=== PATIENT | female | born 1970 | race Caucasian/White ===

== ENCOUNTER 2017-06-03 08:45 | Emergency (ER) | payer OTHER ==
[~2017-06-03] VITALS: Ht 160 cm; Wt 82.0 kg
[2017-06-03 08:54] VITALS: BP 143/90; PULSE 92; RESP 17; TEMP 98.1; O2SAT 98
[2017-06-03 09:03] VITALS: BP 124/87; PULSE 87; RESP 20; TEMP 97.8; O2SAT 98
[2017-06-03] MEDS ORDERED: FURO1TAB60 PO (09:11)
[2017-06-03] MEDS ORDERED: OXYC-396 PO (09:11)
[2017-06-03] MEDS ORDERED: OXYC15TA PO (09:11)
--- NOTE | 2017-06-03 09:27 | PD ---
HPI Chief Complaint: Abdominal Pain Time Seen by Provider: 09:26 Travel History International Travel<30 days: No Contact w/Intl Traveler<30days: No Traveled to known affect area: No History of Present Illness HPI 46-year-old female came to the emergency room with history of abdominal pain that has been going on for past 1 week. Patient says she has history of ovarian cancer and has been in remission since October of this year. She had surgery done with her ovaries were taken out but she is confused if both ovaries were taken out or just one. All this was done in [place]. Patient is here on vacation and will go back home in 3 weeks. No history of vomiting or diarrhea. No history of constipation. The pain waxes and wanes. Vital signs are stable otherwise. Patient is on oxycodone multiple doses daily for chronic pain control. She says she has been taking them and did not run out of those medications. She appeared to be anxious and in discomfort. PFSH Past Medical History Narrative Medical List of her past medical, surgical, social and family history is reviewed from the nursing note. 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 Reported Meds & Prescriptions Reported Meds & Active Scripts Active Reported Oxycodone (Oxycodone HCl) 20 Mg Tab 20 Mg PO BID PRN Oxycodone (Oxycodone HCl) 15 Mg Tab 15 Mg PO QID PRN Lasix (Furosemide) 40 Mg Tab 40 Mg PO DAILY Narrative Medication List of her home medications reviewed from the nursing note. Review of Systems Except as stated in HPI: all other systems reviewed are Neg Gastrointestinal: Positive: Abdominal Pain Physical Exam Narrative GENERAL: Awake, alert, anxious, moderate distress SKIN: Focused skin assessment warm/dry. HEAD: Atraumatic. Normocephalic. EYES: Pupils equal and round. No scleral icterus. No injection or drainage. ENT: No nasal bleeding or discharge. Mucous membranes pink and moist. NECK: Trachea midline. No JVD. CARDIOVASCULAR: Regular rate and rhythm. No murmur appreciated. RESPIRATORY: No accessory muscle use. Clear to auscultation. Breath sounds equal bilaterally. GASTROINTESTINAL: Abdomen soft, non-tender, nondistended. Hepatic and splenic margins not palpable. MUSCULOSKELETAL: No obvious deformities. No clubbing. No cyanosis. No edema. NEUROLOGICAL: Awake and alert. No obvious cranial nerve deficits. Motor grossly within normal limits. Normal speech. PSYCHIATRIC: Appropriate mood and affect; insight and judgment normal. Data Data Last Documented VS Orders Orders Complete Blood Count With Diff (06/03/17 09:30) Comprehensive Metabolic Panel (06/03/17 09:30) Lipase (06/03/17 09:30) Ct Abd/Pel W/O Iv Contrast (06/03/17 09:30) Iv Access Insert/Monitor (06/03/17 09:30) Ecg Monitoring (06/03/17 09:30) Oximetry (06/03/17 09:30) Ondansetron Inj (Zofran Inj) (06/03/17 09:30) Sodium Chlor 0.9% 1000 Ml Inj (Ns 1000 M (06/03/17 09:30) Sodium Chloride 0.9% Flush (Ns Flush) (06/03/17 09:30) Ketorolac Inj (Toradol Inj) (06/03/17 09:30) Urinalysis - C+S If Indicated (06/03/17 09:30) Ed Discharge Order (06/03/17 11:32) Labs Laboratory Tests Test 06/03/17 09:40 06/03/17 10:40 White Blood Count 5.1 TH/MM3 Red Blood Count 4.58 MIL/MM3 Hemoglobin 13.3 GM/DL Hematocrit 39.1 % Mean Corpuscular Volume 85.3 FL Mean Corpuscular Hemoglobin 29.0 PG Mean Corpuscular Hemoglobin Concent 34.0 % Red Cell Distribution Width 13.7 % Platelet Count 222 TH/MM3 Mean Platelet Volume 7.5 FL Neutrophils (%) (Auto) 66.6 % Lymphocytes (%) (Auto) 23.1 % Monocytes (%) (Auto) 7.8 % Eosinophils (%) (Auto) 2.0 % Basophils (%) (Auto) 0.5 % Neutrophils # (Auto) 3.4 TH/MM3 Lymphocytes # (Auto) 1.2 TH/MM3 Monocytes # (Auto) 0.4 TH/MM3 Eosinophils # (Auto) 0.1 TH/MM3 Basophils # (Auto) 0.0 TH/MM3 CBC Comment DIFF FINAL Differential Comment Blood Urea Nitrogen 6 MG/DL Creatinine 1.07 MG/DL Random Glucose 112 MG/DL Total Protein 7.1 GM/DL Albumin 3.7 GM/DL Calcium Level 9.2 MG/DL Alkaline Phosphatase 78 U/L Aspartate Amino Transf (AST/SGOT) 8 U/L Alanine Aminotransferase (ALT/SGPT) 16 U/L Total Bilirubin 0.3 MG/DL Sodium Level 139 MEQ/L Potassium Level 3.7 MEQ/L Chloride Level 107 MEQ/L Carbon Dioxide Level 22.8 MEQ/L Anion Gap 9 MEQ/L Estimat Glomerular Filtration Rate 55 ML/MIN Lipase 136 U/L Urine Color LIGHT-YELLOW Urine Turbidity HAZY Urine pH 7.5 Urine Specific [place] 1.012 Urine Protein NEG mg/dL Urine Glucose (UA) NEG mg/dL Urine Ketones NEG mg/dL Urine Occult Blood NEG Urine Nitrite NEG Urine Bilirubin NEG Urine Urobilinogen LESS THAN 2.0 MG/DL Urine Leukocyte Esterase TRACE Urine RBC 1 /hpf Urine WBC 2 /hpf Urine Squamous Epithelial Cells 6 /hpf Urine Bacteria RARE /hpf Microscopic Urinalysis Comment CULT NOT INDICATED MDM Medical Decision Making Medical Screen Exam Complete: Yes Emergency Medical Condition: Yes Medical Record Reviewed: Yes Differential Diagnosis Intra-abdominal tumor, acute on chronic abdominal pain Narrative Course 11:29 AM blood test results of back and within acceptable limits. CT scan is read by the radiologist as unremarkable. At this point I think patient is just going over acute on chronic exacerbation of the pain. I have medicated her for her pain. I'll discharge her home. Procedures EKG Prior to Arrival: No Diagnosis Primary Impression: acute on chronic abdominal pain Additional Impression: Chronic abdominal pain Referrals: Primary Care Physician Additional Instructions: Please follow-up with your primary care and your oncologist/surgeon when you return home. Return to the ER if the condition worsens or any other new concerns. Tenia are pain medication at home as prescribed. Med/Other Pt SpecificInfo: No Change to Meds Disposition: 01 DISCHARGE HOME Condition: Stable Milton Paniagua MD Jun 03, 2017 09:27
[2017-06-03] MEDS ORDERED: ONDANSETRON HCL 4 MG/2 ML VIAL IVP ONE (09:30)
[2017-06-03] MEDS ORDERED: KETOROLAC TROMETHAMINE 30 MG/ML (IVP) VIAL IVP ONE (09:30)
[2017-06-03] MEDS ORDERED: SODIUM CHLORIDE 0.9% FLUSH 10 ML FLUSH IV FLUSH PRN (09:30)
[2017-06-03] MEDS ORDERED: SODIUM CHLOR 0.9% 1000 ML INJ 1,000 ML IV SCH (09:30)
[2017-06-03 09:42] VITALS: O2SAT 97
[2017-06-03 10:24] LABS: AUTOMATED NEUTROPHIL # 3.4 TH/MM3 (1.8-7.7); BASOPHIL % 0.5 % (0.0-2.0); EOSINOPHIL # 0.1 TH/MM3 (0-0.4); HEMATOCRIT 39.1 % (35.0-46.0); HEMO FLAGS DIFF FINAL; LYMPH % 23.1 % (9.0-44.0); LYMPHOCYTE # 1.2 TH/MM3 (1.0-4.8); MEAN CELL VOLUME 85.3 FL (80.0-100.0); MONO % 7.8 % (0.0-8.0); NEUT % 66.6 % (16.0-70.0); PLATELET COUNT 222 TH/MM3 (150-450); RED BLOOD COUNT 4.58 MIL/MM3 (4.00-5.30); RED CELL DISTRIBUTION WIDTH 13.7 % (11.6-17.2); WHITE BLOOD COUNT 5.1 TH/MM3 (4.0-11.0)
[2017-06-03 10:35] LABS: ANION GAP 9 MEQ/L (5-15); AST (GOT) 8 U/L (15-37); BICARBONATE 22.8 MEQ/L (21.0-32.0); BLOOD UREA NITROGEN 6 MG/DL (7-18); CHLORIDE 107 MEQ/L (98-107); GLOMERULAR FILTRATION RATE 55 ML/MIN (>89); POTASSIUM 3.7 MEQ/L (3.5-5.1); SODIUM (NA) 139 MEQ/L (136-145)
[2017-06-03 10:37] LABS: ALT (GPT) 16 U/L (10-53)
--- NOTE | 2017-06-03 10:38 | RADRPT ---
EXAM DATE/TIME: 06/03/2017 10:05 [facility] COMPARISON: No previous studies available for comparison. INDICATIONS : Right upper quadrant pain with nausea and vomiting. ORAL CONTRAST: No oral contrast ingested. RADIATION DOSE: 9.96 CTDIvol (mGy) MEDICAL HISTORY : Ovarain cancer with lung mets SURGICAL HISTORY : Hysterectomy. ENCOUNTER: Initial ACUITY: 4 - 6 days PAIN SCALE: 5/10 LOCATION: Right upper quadrant TECHNIQUE: Volumetric scanning of the abdomen and pelvis was performed. Using automated exposure control and ad justment of the mA and/or kV according to patient size, radiation dose was kept as low as reasonably achievable to obtain optimal diagnostic quality images. DICOM format image data is available electro nically for review and comparison. The lack of IV contrast limits the diagnosis for certain organ pa thology. FINDINGS: LOWER LUNGS: The visualized lower lungs are clear. LIVER: Homogeneous density without lesion. There is no dilation of the biliary tree. No calcified gallston es. SPLEEN: Normal size without lesion. PANCREAS: Within normal limits. KIDNEYS: Normal in size and shape. There is no mass, stone, or hydronephrosis. Bilateral extrarenal pelves. ADRENAL GLANDS: Within normal limits. VASCULAR: There is no aortic aneurysm. BOWEL/MESENTERY: The stomach, small bowel, and colon demonstrate no acute abnormality. There is no free intraperitone al air or fluid. The appendix is unremarkable. ABDOMINAL WALL: Within normal limits. RETROPERITONEUM: There is no lymphadenopathy. BLADDER: No wall thickening or mass. No bladder stones. REPRODUCTIVE: Within normal limits. INGUINAL: There is no lymphadenopathy or hernia. MUSCULOSKELETAL: Within normal limits for patient age. CONCLUSION: Unremarkable CT scan of the abdomen and pelvis with patient's age. Nael Hinson MD on June 03, 2017 at 10:34 Board Certified Radiologist. This report was verified electronically.
[2017-06-03 10:39] LABS: ALKALINE PHOSPHATASE 78 U/L (45-117); TOTAL BILIRUBIN ADULT 0.3 MG/DL (0.2-1.0)
[2017-06-03 10:58] LABS: BACTERIA, URINE RARE /hpf; BLOOD, URINE NEG (NEG); COMMENT (UR) CULT NOT INDICATED; CULTURE IF INDICATED CULT NOT INDICATED; GLUCOSE,URINE NEG (NEG); KETONE, URINE NEG (NEG); NITRITE,URINE NEG (NEG); PH, URINE 7.5 (5.0-8.5); SQUAMOUS EPITHELIAL CELL URINE 6 /hpf (0-5); URINE COLOR LIGHT-YELLOW (YELLW/STRAW)
== END 2017-06-03 11:45 | disposition home or self-care (01) ==
LOC: NEPE 08:45
DX: R10.9 Unspecified abdominal pain (principal); G89.29 Other chronic pain; Z85.43 Personal history of malignant neoplasm of ovary
CPT/HCPCS: 74176; 80053; 81001; 83690; 85025; 96361; 96374; 96375; 99285; J1885; J2405; J7030

== ENCOUNTER 2018-05-22 03:02 | Observation (INO) ==
[2018-05-22] MEDS ORDERED: Morphine Inj 4 MG/ML Vial IV.PUSH ONE (03:24)
--- NOTE | 2018-05-22 03:28 | ED ---
HPI General Chief complaint: Syncope Stated complaint: Medical Time Seen by Provider: 05/22/18 03:09 History of Present Illness HPI narrative: 47-year-old female with history of metastatic ovarian CA status post chemotherapy and total abdominal hysterectomy, was in remission with recent recurrence, on oral chemotherapy, recently moved here from [place] 6 weeks ago and scheduled to follow with an oncologist here, presents for evaluation of a syncopal episode. The patient reports that she got out of bed, walked to the kitchen, opened the refrigerator, then had a syncopal episode. She felt lightheaded and dizzy prior to the episode. She denies sustaining any injuries. She states that for the last couple of weeks she has not been feeling well. She has chronic abdominal pains and has had ascites in the past and states that her abdominal pain seems to be worse over the last couple of days. She has diffuse pain, but mainly has suprapubic pain that is described as twisting, nonradiating, constant, severe, worse with movements. She occasionally has nausea and vomiting especially after taking her hormone chemotherapy. No diarrhea. No fevers. No cough. No history of DVT or PE. No chest pain or dyspnea. No melena or hematochezia. Related Data Home Medications Medication Instructions Recorded Confirmed docusate sodium [Colace] 100 mg PO DAILY 05/22/18 05/22/18 furosemide [Lasix] 20 mg PO DAILY 05/22/18 05/22/18 ondansetron [Zofran ODT] 4 mg PO BID PRN 05/22/18 05/22/18 oxycodone 15 mg PO Q4-6H PRN 05/22/18 05/22/18 oxycodone [OxyContin] 20 mg PO Q12H 05/22/18 05/22/18 promethazine [Phenergan] 05/22/18 rucaparib [Rubraca] 300 mg PO BID 05/22/18 05/22/18 Allergies Allergy/AdvReac Type Severity Reaction Status Date / Time penicillin G Allergy Severe rash Verified 06/03/17 08:54 Review of Systems ROS: all other systems reviewed are negative COUNT INCLUDES THE [facility] Medical History Medical History Hx of hysterectomy (Acute) Ovarian cancer (Acute) Stage 4 lung cancer (Acute) Surgical History Surgical History Hx of right knee surgery (Acute) Hx of tubal ligation (Acute) Social History Social History Substance History: Active Abuse Second Hand Smoke Exposure: No Smoking Status: Never smoker How Often Do You Have a Drink Containing Alcohol: Never Recent Travel in [facility] within the Last 8 Weeks: No Recent Out of Country Travel within the Last 8 Weeks: No Exam Narrative Exam Narrative: GENERAL: Well-developed, well-nourished, tearful, awake, alert, no apparent distress. SKIN: Focused skin assessment warm/dry. No lacerations or abrasions. HEAD: Atraumatic. Normocephalic. EYES: Pupils equal and round. No scleral icterus. No injection or drainage. ENT: Mucous membranes pink and moist. NECK: Trachea midline. No JVD. CARDIOVASCULAR: Regular rate and rhythm. RESPIRATORY: No accessory muscle use. Clear to auscultation. Breath sounds equal bilaterally. GASTROINTESTINAL: Abdomen soft, nondistended. Moderate diffuse tenderness with significant suprapubic tenderness. No peritoneal signs. MUSCULOSKELETAL: No obvious deformities. No clubbing. No cyanosis. No edema. NEUROLOGICAL: Awake and alert. No obvious cranial nerve deficits. Motor grossly within normal limits. Normal speech. PSYCHIATRIC: Appropriate mood and affect; insight and judgment normal. Course Initial Documented Vital Signs Temperature 98.2 F 05/22/18 03:05 Pulse Rate 80 05/22/18 03:05 Respiratory Rate 20 05/22/18 03:05 Blood Pressure 149/94 H 05/22/18 03:05 Pulse Oximetry 98 05/22/18 03:05 Last Documented Vital Signs Temperature 98.2 F 05/22/18 05:31 Pulse Rate 71 05/22/18 05:31 Respiratory Rate 18 05/22/18 05:31 Blood Pressure 125/70 05/22/18 05:31 Pulse Oximetry 98 05/22/18 05:31 Medical Decision Making MDM Narrative Medical decision making narrative: Vital signs reviewed. CBC is essentially unremarkable. CMP is essentially unremarkable. Cardiac enzymes are negative. UA is not suggestive of UTI. CT head: No evidence of acute intracranial pathology. No masses are identified. CT abdomen pelvis: No evidence of acute abdominal or pelvic process. No masses are identified. CT pulmonary angiogram: No evidence of pulmonary embolism. Coronary calcifications present. The patient was made aware of all findings. She was provided 4 mg of IV morphine shortly after arrival and on reassessment she states that her pain has slightly improved, she still complaining of significant lower abdominal pain and is very tearful. She has never had a syncopal episode in the past. Her EKG shows normal sinus rhythm with a rate of 74, normal axis, normal intervals, no acute ischemic abnormalities. She did have some coronary calcification seen on her CT pulmonary angiogram. She will be given a second dose of pain medicine for her abdominal pain. Given syncope with coronary calcifications as well as ongoing abdominal pain, the patient will be admitted to observation for further treatment and evaluation. Case discussed with hospitalist Dr. Plasencia who will admit the patient to her service. Medical Screen Exam Complete: Yes Emergency Medical Condition: Yes Differential Diagnosis Differential Diagnosis: Syncope, dysrhythmia, anemia, metabolic abnormality, PE , acute intra-abdominal pathology, AAA Lab Data Result diagrams: 05/22/18 03:30 05/22/18 03:30 Lab Results 05/22/18 05/22/18 05/22/18 Range/Units 03:30 03:30 03:30 WBC 6.3 (4.0-11.0) th/mm3 RBC 4.25 (4.00-5.30) mil/mm3 Hgb 12.8 (11.6-15.3) gm/dL Hct 37.1 (35.0-46.0) % MCV 87.4 (80.0-100.0) fL MCH 30.2 (27.0-34.0) pg MCHC 34.5 (32.0-36.0) % RDW 15.0 (11.6-17.2) % Plt Count 219 (150-450) th/mm3 MPV 7.5 (7.0-11.0) fL Neut % (Auto) 53.2 (16.0-70.0) % Lymph % (Auto) 35.8 (9.0-44.0) % [place] % (Auto) 9.0 H (0.0-8.0) % Eos % (Auto) 1.6 (0.0-4.0) % Baso % (Auto) 0.4 (0.0-2.0) % Neut # (Auto) 3.4 (1.8-7.7) th/mm3 Lymph # (Auto) 2.3 (1.0-4.8) th/mm3 [place] # (Auto) 0.6 (0.0-0.9) th/mm3 Eos # (Auto) 0.1 (0.0-0.4) th/mm3 Baso # (Auto) 0.0 (0.0-0.2) th/mm3 WBC Differential . Differential Comment Auto diff final PT 11.1 (9.8-11.6) sec INR 1.1 Ratio APTT 25.5 (24.3-30.1) sec Sodium 141 (136-145) meq/L Potassium 3.7 (3.5-5.1) meq/L Chloride 102 (98-107) meq/L Carbon Dioxide 27.4 (21.0-32.0) meq/L Anion Gap 12 (5-15) meq/L BUN 11 (7-18) mg/dL Creatinine 1.02 H (0.50-1.00) mg/dL Estimated GFR 58 L (>89) mL/min Random Glucose 104 (74-106) mg/dL Calcium 8.6 (8.5-10.1) mg/dL Total Bilirubin 0.4 (0.2-1.0) mg/dL AST 9 L (15-37) U/L ALT 13 (10-53) U/L Alkaline Phosphatase 56 (45-117) U/L Troponin I Less than 0.02 L (0.02-0.05) ng/mL Total Protein 7.2 (6.4-8.2) g/dL Albumin 3.8 (3.4-5.0) g/dL Urine Color (Yellw/Straw) Urine Clarity (Clear) Urine pH (5.0-8.5) Ur Specific [place] (1.002-1.035) Urine Protein (Neg-Trace) mg/dL Urine Glucose (UA) (Negative) mg/dL Urine Ketones (Negative) mg/dL Urine Occult Blood (Negative) Urine Nitrate (Negative) Urine Bilirubin (Negative) Urine Urobilinogen (Less than 2) mg/dL Ur Leukocyte Esterase (Negative) Urine WBC (0-5) /hpf Ur Squamous Epith Cells (0-5) /hpf Urine Mucus (Occasional) /lpf Micro UA Comment Ur Microscopic Review Urine Culture Comments 05/22/18 Range/Units 05:30 WBC (4.0-11.0) th/mm3 RBC (4.00-5.30) mil/mm3 Hgb (11.6-15.3) gm/dL Hct (35.0-46.0) % MCV (80.0-100.0) fL MCH (27.0-34.0) pg MCHC (32.0-36.0) % RDW (11.6-17.2) % Plt Count (150-450) th/mm3 MPV (7.0-11.0) fL Neut % (Auto) (16.0-70.0) % Lymph % (Auto) (9.0-44.0) % [place] % (Auto) (0.0-8.0) % Eos % (Auto) (0.0-4.0) % Baso % (Auto) (0.0-2.0) % Neut # (Auto) (1.8-7.7) th/mm3 Lymph # (Auto) (1.0-4.8) th/mm3 [place] # (Auto) (0.0-0.9) th/mm3 Eos # (Auto) (0.0-0.4) th/mm3 Baso # (Auto) (0.0-0.2) th/mm3 WBC Differential Differential Comment PT (9.8-11.6) sec INR Ratio APTT (24.3-30.1) sec Sodium (136-145) meq/L Potassium (3.5-5.1) meq/L Chloride (98-107) meq/L Carbon Dioxide (21.0-32.0) meq/L Anion Gap (5-15) meq/L BUN (7-18) mg/dL Creatinine (0.50-1.00) mg/dL Estimated GFR (>89) mL/min Random Glucose (74-106) mg/dL Calcium (8.5-10.1) mg/dL Total Bilirubin (0.2-1.0) mg/dL AST (15-37) U/L ALT (10-53) U/L Alkaline Phosphatase (45-117) U/L Troponin I (0.02-0.05) ng/mL Total Protein (6.4-8.2) g/dL Albumin (3.4-5.0) g/dL Urine Color Yellow (Yellw/Straw) Urine Clarity Clear (Clear) Urine pH 6.0 (5.0-8.5) Ur Specific [place] 1.025 (1.002-1.035) Urine Protein Negative (Neg-Trace) mg/dL Urine Glucose (UA) Negative (Negative) mg/dL Urine Ketones Negative (Negative) mg/dL Urine Occult Blood Negative (Negative) Urine Nitrate Negative (Negative) Urine Bilirubin Negative (Negative) Urine Urobilinogen Less than 2 (Less than 2) mg/dL Ur Leukocyte Esterase Negative (Negative) Urine WBC 1 (0-5) /hpf Ur Squamous Epith Cells <1 (0-5) /hpf Urine Mucus Few H (Occasional) /lpf Micro UA Comment Culture not ind Ur Microscopic Review Not Reportable Urine Culture Comments Culture not ind Imaging Data Radiologist's impression: Abdomen/Pelvis CT 05/22/18 03:21 CONCLUSION: No evidence of acute abdominal or pelvic process. No masses are identified. Chest CTA 05/22/18 03:21 CONCLUSION: No evidence of pulmonary embolism. Head CT 05/22/18 03:21 CONCLUSION: No evidence of acute intracranial pathology. No masses are identified. . ECG Data Attestation: I personally reviewed and interpreted this ECG as follows: Discharge Plan Discharge Disposition Patient Disposition: 30 Still Patient Discharge Condition Condition: Stable Discharge Details Diagnosis: Syncope, Intractable abdominal pain Physicians Team ED Provider: Dereck Arrington Primary Care Provider: Primary Care Shari Ferris Rxs /Orders / Referrals /Forms Prescriptions: No Action oxycodone 15 mg Tablet 15 mg PO Q4-6H PRN (Reason: Pain) RF: 0 promethazine [Phenergan] 12.5 mg Suppository RF: 0 docusate sodium [Colace] 100 mg Capsule 100 mg PO DAILY RF: 0 furosemide [Lasix] 20 mg Tablet 20 mg PO DAILY RF: 0 ondansetron [Zofran ODT] 4 mg Tablet,Disintegrating 4 mg PO BID PRN (Reason: Nausea) RF: 0 oxycodone [OxyContin] 20 mg Tablet,Oral Only,Ext.Rel.12 Hr 20 mg PO Q12H RF: 0 rucaparib [Rubraca] 300 mg Tablet 300 mg PO BID RF: 0 Discharge Interventions Interventions: Vital Signs Last Done: 05/22/18 05:31 Status ED Status: With Doctor
[2018-05-22 04:03] LABS: Baso % (Auto) 0.4 % (0.0-2.0); Eos # (Auto) 0.1 th/mm3 (0.0-0.4); Eos % (Auto) 1.6 % (0.0-4.0); Hematocrit 37.1 % (35.0-46.0); Hemoglobin 12.8 gm/dL (11.6-15.3); Lymph # (Auto) 2.3 th/mm3 (1.0-4.8); Lymph % (Auto) 35.8 % (9.0-44.0); Mean Corpuscular HGB Conc 34.5 % (32.0-36.0); Mean Corpuscular Hemoglobin 30.2 pg (27.0-34.0); Mean Corpuscular Volume 87.4 fL (80.0-100.0); Mean Platelet Volume 7.5 fL (7.0-11.0); Mono # (Auto) 0.6 th/mm3 (0.0-0.9); Neut # (Auto) 3.4 th/mm3 (1.8-7.7); Neut % (Auto) 53.2 % (16.0-70.0); Platelet Count 219 th/mm3 (150-450); Red Blood Count 4.25 mil/mm3 (4.00-5.30); White Blood Count 6.3 th/mm3 (4.0-11.0)
[2018-05-22 04:08] LABS: Activated Partial Thrombo Time 25.5 sec (24.3-30.1); INR 1.1 Ratio; Prothrombin Time 11.1 sec (9.8-11.6)
[2018-05-22 04:21] LABS: Alanine Aminotransferase 13 U/L (10-53); Albumin 3.8 g/dL (3.4-5.0); Anion Gap 12 meq/L (5-15); Aspartate Aminotransferase 9 U/L (15-37); Blood Urea Nitrogen 11 mg/dL (7-18); Calcium 8.6 mg/dL (8.5-10.1); Carbon Dioxide 27.4 meq/L (21.0-32.0); Chloride 102 meq/L (98-107); Glomerular Filtration Rate 58 mL/min (>89); Glucose,Random 104 mg/dL (74-106); Potassium 3.7 meq/L (3.5-5.1); Sodium 141 meq/L (136-145)
[2018-05-22 04:24] LABS: Alkaline Phosphatase 56 U/L (45-117); Total Protein 7.2 g/dL (6.4-8.2)
[2018-05-22 05:32] VITALS: O2SAT 98
--- NOTE | 2018-05-22 05:50 | CT ---
EXAM DATE: 05/22/2018 3:47 AM EDT AGE/SEX: 47 years / Female INDICATIONS: Syncope. Stage 4 ovarian cancer. CLINICAL DATA: This is the patient's initial encounter. Patient reports that signs and symptoms have been present for 1 day and indicates a pain score of 4/10. MEDICAL/SURGICAL HISTORY: Carcinoma, ovarian. Metastatic disease. Hysterectomy. RADIATION DOSE: 56.35 CTDI (mGy) COMPARISON: . TECHNIQUE: CT of the head without contrast. Using automated exposure control and adjustment of the mA and/or kV according to patient size, radiation dose was kept as low as reasonably achievable to ob tain optimal diagnostic quality images. DICOM format image data is available electronically for revi ew and comparison. FINDINGS: Noncontrast axial head CT demonstrates the ventricles to be normal in size and configuration with a n ormal sulcal pattern. No acute intracranial hemorrhage, acute cortical infarction, mass or midline sh ift is seen. Posterior fossa structures are unremarkable. Bone windows are unremarkable. CONCLUSION: No evidence of acute intracranial pathology. No masses are identified. . Electronically signed by: Thomas Nino MD 05/22/2018 5:49 AM EDT
--- NOTE | 2018-05-22 05:53 | CT ---
EXAM DATE: 05/22/2018 3:47 AM EDT AGE/SEX: 47 years / Female INDICATIONS: Shortness of breath, syncope. CLINICAL DATA: This is the patient's initial encounter. Patient reports that signs and symptoms have been present for 1 day and indicates a pain score of 0/10. MEDICAL/SURGICAL HISTORY: Carcinoma, ovarian. Metastatic disease. Chemotherapy. Ascites. Hysterec tiffanie. RADIATION DOSE: 9.84 CTDI (mGy) COMPARISON: No prior exams available for comparison. TECHNIQUE: Volumetric scanning was performed using a multi-row detector CT scanner during bolus infu valeria of 100 ml Omnipaque 350 (iohexol) nonionic water-soluble contrast as a cumulative dose for mult iple exams. The data was post processed with a variety of visualization algorithms including full vol ume maximum intensity projection and sliding thin slab reformation. Using automated exposure control and adjustment of the mA and/or kV according to patient size, radiation dose was kept as low as reas onably achievable to obtain optimal diagnostic quality images. DICOM format image data is available electronically for review and comparison. FINDINGS: Examination of the pulmonary vasculature demonstrates good filling of the main, lobar and segmental b ranches. There are no filling defects to suggest pulmonary embolism. Multiplanar reconstructions are also unremarkable. There is subsegmental atelectasis in the both bases. Examination of the mediastinum demonstrates no a bnormally enlarged lymph nodes by CT criteria. No axillary or hilar abnormalities are identified. Cor onary artery calcifications are present. CONCLUSION: No evidence of pulmonary embolism. Electronically signed by: Thomas Nino MD 05/22/2018 5:51 AM EDT
--- NOTE | 2018-05-22 05:55 | CT ---
EXAM DATE: 05/22/2018 3:48 AM EDT AGE/SEX: 47 years / Female INDICATIONS: Abdominal pain. CLINICAL DATA: This is the patient's initial encounter. Patient reports that signs and symptoms have been present for 1 day and indicates a pain score of 8/10. MEDICAL/SURGICAL HISTORY: Carcinoma, ovarian. Metastatic disease. Chemotherapy. Ascites. Hys terectomy. ORAL CONTRAST: No oral contrast ingested. RADIATION DOSE: 16.59 CTDI (mGy) COMPARISON: No prior exams available for comparison. TECHNIQUE: Multiple contiguous axial images were obtained through the abdomen and pelvis following b olus infusion of 100 ml Omnipaque 350 (iohexol) nonionic water-soluble contrast as a cumulative dos e for multiple exams. No oral contrast ingested. Using automated exposure control and adjustment of the mA and/or kV according to patient size, radiation dose was kept as low as reasonably achievable t o obtain optimal diagnostic quality images. DICOM format image data is available electronically for review and comparison. FINDINGS: There is subsegmental atelectasis in the both bases. The liver and spleen are free of focal defects. The gallbladder and pancreas demonstrate no abnormality. The adrenal glands are normal. The kidneys d emonstrate no evidence of solid renal mass or hydronephrosis. No free fluid or abdominal masses are i dentified. No para-aortic adenopathy is seen. The appendix is identified and appears normal. Examination of the pelvis demonstrates no evidence of free fluid or pelvic mass. No abnormally enlarg ed inguinal or retroperitoneal lymph nodes are present. The bladder is unremarkable. CONCLUSION: No evidence of acute abdominal or pelvic process. No masses are identified. Electronically signed by: Thomas Nino MD 05/22/2018 5:54 AM EDT
[2018-05-22 05:57] LABS: Bilirubin,Urine Negative (Negative); Clarity,Urine Clear (Clear); Color,Urine Yellow (Yellw/Straw); Glucose,Urine (UA) Negative (Negative); Leukocyte Esterase,Urine Negative (Negative); Mucus,Urine Few /lpf (Occasional); Nitrite,Urine Negative (Negative); Specific Gravity,Urine 1.025 (1.002-1.035); Squamous Epithelial Cell,Urine <1 /hpf (0-5)
[2018-05-22] MEDS ORDERED: HYDROmorphone PF Inj 2 MG/ML Vial IV.PUSH ONE (06:04)
[2018-05-22] MEDS ORDERED: Sod Chloride 0.9% Inj 1,000 ML IV.CONT SCH (06:30)
[2018-05-22] MEDS ORDERED: [UNRECOGNIZED DRUG - OTHER] PO SCH (09:15)
[2018-05-22 09:20] LABS: Calcium 8.9 mg/dL (8.5-10.1); Carbon Dioxide 27.7 meq/L (21.0-32.0); Potassium 3.9 meq/L (3.5-5.1)
--- NOTE | 2018-05-22 09:20 | P.HPIM ---
History of Present Illness Primary Care Physician: No Primary Care Physician Chief Complaint: " I passed out." History of Present Illness: patient is a 47 y/o female with history of metastatic ovarian cancer- s/p total hysterectomy and currently on chemotherapy, presented to ER after she passed out at home earlier. she says that when she got out of the bed to go to kitchen she fainted. she denies any prodromal symptoms before the fall-including chest pain, sob, dizziness,nausea. she regained her consciousness in a couple of minutes. she's complaining of mild lower abdominal pain- otherwise no other complaints today. Review of Systems All other systems reviewed negative except as stated in HPI PMFSH - History History Provided By: Patient - Medical History Medical History: Medical History (Last Reviewed 05/22/18 @ 09:14 by Kyree Parks MD) Hx of hysterectomy Ovarian cancer Stage 4 lung cancer - Surgical History Surgical History: Surgical History (Last Reviewed 05/22/18 @ 09:14 by Kyree Parks MD) Hx of right knee surgery Hx of tubal ligation - Family History Family History: Family History (Last Reviewed 05/22/18 @ 09:14 by Kyree Parks MD) Other No pertinent family history - Tobacco History Second Hand Smoke Exposure: No Tobacco Use In Past 30 Days: No Smoking Status: Never smoker - Alcohol History How Often Do You Have a Drink Containing Alcohol: Never - Substance Use History Substance History: Active Abuse - Substance Use Type Marijuana Status: Active Route Used: Inhalation Reason for Use: Feels Good - Travel History Recent Travel in the [place] Within the Last 8 Weeks: No Recent Travel Out of the Country Within the Last 8 Weeks: No - Immunization History Tetanus Immunization: <5 Years Medications and Allergies Active Medications: Active Medications Sodium Chloride (Ns Inj) 1,000 mls @ 100 mls/hr IV.CONT .Q10H KASSI Last Admin: 05/22/18 07:43 Dose: 100 mls/hr Allergies Allergy/AdvReac Type Severity Reaction Status Date / Time penicillin G Allergy Severe rash Verified 06/03/17 08:54 Home Medications Medication Instructions Recorded Confirmed Type docusate sodium [Colace] 100 mg PO DAILY 05/22/18 05/22/18 History furosemide [Lasix] 20 mg PO DAILY 05/22/18 05/22/18 History ondansetron [Zofran ODT] 4 mg PO BID PRN 05/22/18 05/22/18 History oxycodone 15 mg PO Q4-6H PRN 05/22/18 05/22/18 History oxycodone [OxyContin] 20 mg PO Q12H 05/22/18 05/22/18 History promethazine [Phenergan] 05/22/18 History rucaparib [Rubraca] 300 mg PO BID 05/22/18 05/22/18 History Exam Vital signs: Vital Signs 05/22/18 03:05 05/22/18 03:35 05/22/18 05:02 Temperature 98.2 F 98.1 F Pulse Rate 80 85 Respiratory Rate 20 20 16 Blood Pressure 149/94 H 138/95 H Pulse Oximetry 98 99 05/22/18 05:31 05/22/18 08:00 Temperature 98.2 F Pulse Rate 71 76 Respiratory Rate 18 16 Blood Pressure 125/70 122/78 Pulse Oximetry 98 Intake & Output 05/21/18 05/22/18 05/22/18 18:59 06:59 18:59 Weight 72.575 kg - Constitutional no acute distress - Routine HEENT Exam Eye: Present: PERRL - Routine Neck Exam Present: supple - Routine Respiratory Exam Present: CTA bilaterally - Routine Cardiovascular Exam Present: RRR - Routine Abdominal Exam Present: soft - Routine Extremities Exam Comments: no pedal edema. - Routine Neurological Exam Present: alert, oriented X3 Results - Labs CBC & Chem 7: 05/22/18 03:30 05/22/18 03:30 Labs: Short CBC 05/22/18 Range/Units 03:30 WBC 6.3 (4.0-11.0) th/mm3 Hgb 12.8 (11.6-15.3) gm/dL Hct 37.1 (35.0-46.0) % Plt Count 219 (150-450) th/mm3 BMP 05/22/18 03:30 Sodium 141 Potassium 3.7 Chloride 102 Carbon Dioxide 27.4 BUN 11 Creatinine 1.02 H Calcium 8.6 Cardiac Enzymes 05/22/18 Range/Units 03:30 Troponin I Less than 0.02 L (0.02-0.05) ng/mL Liver Function 05/22/18 Range/Units 03:30 Total Bilirubin 0.4 (0.2-1.0) mg/dL AST 9 L (15-37) U/L ALT 13 (10-53) U/L Alkaline Phosphatase 56 (45-117) U/L Albumin 3.8 (3.4-5.0) g/dL Urine 05/22/18 Range/Units 05:30 Urine Color Yellow (Yellw/Straw) Urine Clarity Clear (Clear) Urine pH 6.0 (5.0-8.5) Ur Specific [place] 1.025 (1.002-1.035) Urine Protein Negative (Neg-Trace) mg/dL Urine Glucose (UA) Negative (Negative) mg/dL - Imaging Impressions Abdomen/Pelvis CT 05/22/18 03:21 CONCLUSION: No evidence of acute abdominal or pelvic process. No masses are identified. Chest CTA 05/22/18 03:21 CONCLUSION: No evidence of pulmonary embolism. Head CT 05/22/18 03:21 CONCLUSION: No evidence of acute intracranial pathology. No masses are identified. . Caprini VTE Risk Assessment Caprini VTE Risk Assessment: Moderate/High Risk (score >= 2) Caprini Risk Assessment Model: Point Value = 1 Point Value = 2 Point Value = 3 Point Value = 5 Age 41-60 Minor surgery BMI > 25 kg/m2 Swollen legs Varicose veins or History of unexplained or recurrent spontaneous Oral contraceptives or hormone replacement Sepsis (< 1 month) Serious lung disease, including pneumonia (< 1 month) Abnormal pulmonary function Acute myocardial infarction Congestive heart failure (< 1 month) History of inflammatory bowel disease Medical patient at bed rest Age 61-74 Arthroscopic surgery Major open surgery (> 45 min) Laparoscopic surgery (> 45 min) Malignancy Confined to bed (> 72 hours) Immobilizing plaster cast Central venous access Age >= 75 History of VTE Family history of VTE Factor V Leiden Prothrombin [id number] Lupus anticoagulant Anticardiolipin antibodies Elevated serum homocysteine Heparin-induced thrombocytopenia Other congenital or acquired thrombophilia Stroke (< 1 month) Elective arthroplasty Hip, pelvis, or leg fracture Acute spinal cord injury (< 1 month) Prophylaxis Regimen: Total Risk Factor Score Risk Level Prophylaxis Regimen 0-1 Low Early ambulation 2 Moderate Order ONE of the following: *Sequential Compression Device (SCD) *Heparin 5000 units SQ BID 3-4 Higher Order ONE of the following medications: *Heparin 5000 units SQ TID *Enoxaparin/Lovenox 40 mg SQ daily (WT < 150 kg, CrCl > 30 mL/min) *Enoxaparin/Lovenox 30 mg SQ daily (WT < 150 kg, CrCl > 10-29 mL/min) *Enoxaparin/Lovenox 30 mg SQ BID (WT < 150 kg, CrCl > 30 mL/min) AND/OR *Sequential Compression Device (SCD) 5 or more Highest Order ONE of the following medications: *Heparin 5000 units SQ TID (Preferred with Epidurals) *Enoxaparin/Lovenox 40 mg SQ daily (WT < 150 kg, CrCl > 30 mL/min) *Enoxaparin/Lovenox 30 mg SQ daily (WT < 150 kg, CrCl > 10-29 mL/min) *Enoxaparin/Lovenox 30 mg SQ BID (WT < 150 kg, CrCl > 30 mL/min) AND *Sequential Compression Device (SCD) Assessment and Plan - Plan A/P - syncope no chest pain/ dizziness/ sob. CT head negative and CTA chest with no PE. EKG with NSR. continue to monitor on telemetry- check echo and carotid doppler. check orthostatic BP. -history of metastatic ovarian cancer- on chemotherapy- resume home pain meds. -DVT prophylaxis; subq Lovenox Discharge Planning: within the next 24 hrs- if stable with negative w/u.
[2018-05-22] MEDS ORDERED: oxyCODONE HCL 20 MG Controlled Release Tablet PO SCH (10:00)
[2018-05-22] MEDS ORDERED: Enoxaparin Inj 40 MG/0.4 ML Syringe SQ SCH (10:00)
--- NOTE | 2018-05-22 10:40 | US ---
EXAM DATE: 05/22/2018 12:00 AM EDT AGE/SEX: 47 years / Female INDICATIONS: Syncope. CLINICAL DATA: This is the patient's initial encounter. Patient reports that signs and symptoms have been present for 1 day and indicates a pain score of 0/10. MEDICAL/SURGICAL HISTORY: . Ovarian cancer. Lung cancer. Hysterectomy. Tubal ligation. Right knee surgery. COMPARISON: No prior exams available for comparison. VELOCITY PARAMETERS: ICA/CCA Ratio: Right 1.1 , Left 1.5 ICA: Right 91.3 cm/sec, Left 149 cm/sec CCA: Right 82.6 cm/sec, Left 96.7 cm/sec ECA: Right 73.3 cm/sec, Left 85.5 cm/sec Vertebral: Right 43.1 cm/sec antegrade, Left 51.0 cm/sec antegrade FINDINGS: Right Carotid: No significant plaque is visualized.The waveforms are within normal limits. Left Carotid: No significant plaque is visualized. The waveforms are within normal limits. Other: None. CONCLUSION: 1. Right Internal Carotid Artery: No hemodynamically significant stenosis. 2. Left Internal Carotid Artery: No hemodynamically significant stenosis. Electronically signed by: Zheng Vasquez MD 05/22/2018 10:38 AM EDT
--- NOTE | 2018-05-22 11:12 | ECHRPT ---
Indication: SYNCOPE CONCLUSIONS Normal left ventricular size and wall thickness. The left ventricular systolic function is normal wi th an estimated ejection fraction of 55%. Normal wall motion. There is trace tricuspid valve regurgitation. The estimated pulmonary arterial pressure is 27 mmHg. BP: / HR: Rhythm: Sinus Technical Quality:Excellent FINDINGS LEFT VENTRICLE Normal left ventricular size and wall thickness. The left ventricular systolic function is normal wi th an estimated ejection fraction of 55%. Normal wall motion. RIGHT VENTRICLE Normal right ventricular size and systolic function. LEFT ATRIUM The left atrial size is normal. RIGHT ATRIUM The right atrial size is normal. ATRIAL SEPTUM Normal atrial septal thickness without atrial level shunting by limited color doppler interrogation. AORTA The aortic root and proximal ascending aorta are normal in size on limited imaging. MITRAL VALVE Structurally normal mitral valve. No mitral valve stenosis or regurgitation. AORTIC VALVE Trileaflet aortic valve. No aortic valve stenosis or regurgitation. TRICUSPID VALVE Structurally normal tricuspid valve. There is trace tricuspid valve regurgitation. The estimated pulmonary arterial pressure is 27 mmHg. PULMONARY VALVE Trivial pulmonary valve regurgitation. VESSELS The inferior vena cava is normal in size. PERICARDIUM No pericardial effusion. Luther Morales MD (Electronically Signed) Final Date:22 May 2018 11:11
--- NOTE | 2018-05-22 11:54 | ECG ---
Date Performed: 05/22/2018 Time Performed: 03:50:57 PTAGE: 47 years EKG: Sinus rhythm NORMAL ECG NO PREVIOUS TRACING DOCTOR: Thomas Chilel Interpretating Date/Time 05/22/2018 11:51:07
[2018-05-22 12:15] VITALS: TEMP 99
[2018-05-22 14:18] VITALS: BP 120/80; PULSE 95
[2018-05-22 16:57] VITALS: RESP 18
[2018-05-23] MEDS ORDERED: Docusate Sodium 100 MG Capsule PO SCH (09:30)
== END 2018-05-22 15:45 | disposition left against medical advice (07) ==
LOC: NEDA 03:02 → NEPC 03:02 → NEDA 08:16 → HCIN 08:19
PROVIDERS: ADMIT Internal Medicine; ATTEND Internal Medicine